=== PATIENT | male | born 1940 | race Caucasian/White ===

== ENCOUNTER 2019-04-29 14:02 | Inpatient (IN) ==
[2019-04-29] MEDS ORDERED: Ibuprofen 400 MG TABLET PO PRN (15:29)
[2019-04-29] MEDS ORDERED: Ondansetron 4 MG/2 ML VIAL IVP PRN (15:29)
[2019-04-29] MEDS ORDERED: MOM Conc 10 ML UD.LIQ PO PRN (15:29)
[2019-04-29] MEDS ORDERED: Mag Hydrox/Al Hydrox/Simeth 30 ML UDC PO PRN (15:29)
[2019-04-29] MEDS ORDERED: Naloxone 0.4 MG/ML INJ IVP PRN (15:29)
[2019-04-29] MEDS ORDERED: Acetaminophen 325 MG TABLET PO PRN (17:39)
[2019-04-29 18:17] LABS: Heparin anti-factor XA UFH 0.51 IU/mL (0.30-0.70)
[2019-04-29 18:18] LABS: INR 1.1; Prothrombin Time 12.2 Seconds (9.4-12.1)
[2019-04-29] MEDS: Nitroglycerin 1 INCH/GM PACKET TP SCH (18:44)
[2019-04-29] MEDS ORDERED: *HR* Heparin 5,000 UNIT/ML VIAL IVP ONE (23:00)
[2019-04-29] MEDS ORDERED: *HR* Heparin 5,000 UNIT/ML VIAL IVP PRN (23:00)
[2019-04-29] MEDS: Heparin 25,000 UNIT/250 ML D5W 25,000 UNIT/250 ML IV.SOLN IVC SCH (23:09)
[2019-04-30 01:26] LABS: Hematocrit 41.2 % (37.5-50.1); Hemoglobin 13.4 g/dL (12.9-16.9); Mean Corpuscular HGB Conc 32.5 g/dL (31.6-35.5); Mean Corpuscular Hemoglobin 29.8 pg (28.0-33.3); Mean Corpuscular Volume 91.8 fL (83.0-100.0); Mean Platelet Volume 10.5 fL (9.4-12.4); Platelet Count 223 K/mcL (140-400); Red Blood Count 4.49 M/mcL (4.19-5.50); Red Cell Distribution Width 12.3 % (11.5-14.5); White Blood Count 9.8 K/mcL (4.3-11.1)
[2019-04-30 01:44] LABS: BUN/Creatinine Ratio 13 (6-26); Blood Urea Nitrogen 16 mg/dL (8-23); Calcium 9.6 mg/dL (8.6-10.3); Carbon Dioxide 27 mEq/L (23-29); Chloride 98 mEq/L (98-107); Glucose 239 mg/dL (70-105); Magnesium 1.6 mg/dL (1.6-2.6); Osmolality,Calculated 287 (280-300); Potassium 3.9 mEq/L (3.5-5.1); Sodium 134 mEq/L (136-145); eGFR For African Americans > 60 (> 60); eGFR For Non-African Americans 59 (> 60)
[2019-04-30] MEDS: Nitroglycerin 1 INCH/GM PACKET TP SCH (05:44)
[2019-04-30] MEDS: Aspirin Enteric Coated 81 MG Tablet PO SCH (07:58)
[2019-04-30] MEDS: Nitroglycerin 25 MG/250 ML INFUS..BTL IVC SCH (11:01)
[2019-04-30] MEDS: Heparin 25,000 UNIT/250 ML D5W 25,000 UNIT/250 ML IV.SOLN IVC SCH (20:22)
[2019-05-01] MEDS: *HR* Heparin 5,000 UNIT/ML VIAL IVP PRN (00:45)
[2019-05-01 02:35] LABS: Basophils # 0.1 K/mcL (0.0-0.2); Basophils % 0.6 %; Eosinophils # 0.5 K/mcL (0.0-0.6); Eosinophils % 4.8 %; Hemoglobin 13.8 g/dL (12.9-16.9); Immature Granulocytes % 0.3 % (0-4); Lymphocytes # 2.2 K/mcL (0.6-4.6); Lymphocytes % 23.1 %; Mean Corpuscular HGB Conc 32.9 g/dL (31.6-35.5); Mean Corpuscular Hemoglobin 29.7 pg (28.0-33.3); Mean Corpuscular Volume 90.3 fL (83.0-100.0); Mean Platelet Volume 9.9 fL (9.4-12.4); Monocytes % 10.1 %; Neutrophils # 5.8 K/mcL (1.6-8.9); Platelet Count 224 K/mcL (140-400); Red Blood Count 4.65 M/mcL (4.19-5.50); Red Cell Distribution Width 12.2 % (11.5-14.5); Segmented Neutrophils % 61.1 %; White Blood Count 9.6 K/mcL (4.3-11.1)
[2019-05-01 02:38] LABS: Estimated Average Glucose 157 mg/dl
[2019-05-01 02:54] LABS: BUN/Creatinine Ratio 11 (6-26); Blood Urea Nitrogen 13 mg/dL (8-23); Calcium 9.5 mg/dL (8.6-10.3); Carbon Dioxide 28 mEq/L (23-29); Chloride 98 mEq/L (98-107); Chol/HDL Ratio 6.8 (0-4.9); Cholesterol 257 mg/dL (< 200); Glucose 143 mg/dL (70-105); HDL Cholesterol 38 mg/dL (40-59); LDL Cholesterol,Calculated 178 mg/dL (0-99); Osmolality,Calculated 281 (280-300); Potassium 3.9 mEq/L (3.5-5.1); Sodium 134 mEq/L (136-145); Triglycerides 206 mg/dL (< 150); eGFR For African Americans > 60 (> 60); eGFR For Non-African Americans > 60 (> 60)
[2019-05-01] MEDS ORDERED: Heparin 1,000 UNITS/500 mL 500 ML ONE (07:06)
[2019-05-01] MEDS ORDERED: Nitroglycerin 1,000 MCG/10 ML VIAL IV ONE (07:06)
[2019-05-01] MEDS ORDERED: 0.9 % Sodium Chloride 1,000 ML ONE (07:06)
[2019-05-01] MEDS ORDERED: *HR* Heparin 10,000 UNIT/10 ML VIAL ONE (07:06)
[2019-05-01] MEDS ORDERED: Iopamidol 125 ML INFUS..BTL ONE (07:07)
[2019-05-01] MEDS ORDERED: *HR* FentaNYL (PF) 100 MCG/2 ML VIAL ONE (07:19)
[2019-05-01] MEDS ORDERED: *HR* Midazolam HCl 2 MG/2 ML VIAL ONE (07:19)
[2019-05-01] MEDS ORDERED: Isovue-300 200 mL Infus..BTL ONE (08:09)
[2019-05-01] MEDS ORDERED: Tirofiban 12.5 MG/250ML 12.5 MG/250 ML BAG ONE (08:09)
[2019-05-01] MEDS: Aspirin Enteric Coated 81 MG Tablet PO SCH (08:57)
[2019-05-01] MEDS: 0.9 % Sodium Chloride 1,000 ML IVC SCH (09:00)
[2019-05-01] MEDS: Heparin 25,000 UNIT/250 ML D5W 25,000 UNIT/250 ML IV.SOLN IVC SCH (09:28)
[2019-05-01] MEDS: Nitroglycerin 25 MG/250 ML INFUS..BTL IVC SCH (09:39)
[2019-05-01] MEDS ORDERED: Perflutren Lipid Microsphere 1.3 ML in 0.9 % Sodium Chloride 8.7 ML IVP ONE (13:29)
[2019-05-02] MEDS: 0.9 % Sodium Chloride 1,000 ML IVC SCH (00:44)
[2019-05-02 01:02] LABS: Basophils # 0.1 K/mcL (0.0-0.2); Basophils % 0.7 %; Eosinophils # 0.4 K/mcL (0.0-0.6); Eosinophils % 4.8 %; Hematocrit 41.2 % (37.5-50.1); Hemoglobin 13.7 g/dL (12.9-16.9); Immature Granulocytes % 0.2 % (0-4); Lymphocytes # 2.2 K/mcL (0.6-4.6); Mean Corpuscular HGB Conc 33.3 g/dL (31.6-35.5); Mean Corpuscular Hemoglobin 30.2 pg (28.0-33.3); Mean Corpuscular Volume 90.7 fL (83.0-100.0); Mean Platelet Volume 9.8 fL (9.4-12.4); Monocytes # 0.9 K/mcL (0.0-1.3); Monocytes % 10.2 %; Neutrophils # 5.4 K/mcL (1.6-8.9); Platelet Count 205 K/mcL (140-400); Red Blood Count 4.54 M/mcL (4.19-5.50); Red Cell Distribution Width 12.2 % (11.5-14.5); Segmented Neutrophils % 60.1 %
[2019-05-02 01:12] LABS: Prothrombin Time 11.7 Seconds (9.4-12.1)
[2019-05-02 01:27] LABS: BUN/Creatinine Ratio 14 (6-26); Blood Urea Nitrogen 15 mg/dL (8-23); Calcium 9.2 mg/dL (8.6-10.3); Carbon Dioxide 27 mEq/L (23-29); Chloride 100 mEq/L (98-107); Glucose 133 mg/dL (70-105); Osmolality,Calculated 283 (280-300); Potassium 3.9 mEq/L (3.5-5.1); Sodium 135 mEq/L (136-145); eGFR For African Americans > 60 (> 60); eGFR For Non-African Americans > 60 (> 60)
[2019-05-02] MEDS: *HR* Heparin 5,000 UNIT/ML VIAL IVP PRN (02:53)
[2019-05-02] MEDS: Heparin 25,000 UNIT/250 ML D5W 25,000 UNIT/250 ML IV.SOLN IVC SCH (06:54)
[2019-05-02] MEDS: Aspirin Enteric Coated 81 MG Tablet PO SCH (08:13)
[2019-05-02] MEDS ORDERED: *HR* Heparin 10,000 UNIT/10 ML VIAL ONE (14:28)
[2019-05-02] MEDS ORDERED: Iopamidol 125 ML INFUS..BTL ONE (14:28)
[2019-05-02] MEDS ORDERED: Heparin 1,000 UNITS/500 mL 500 ML ONE (14:28)
[2019-05-02] MEDS ORDERED: 0.9 % Sodium Chloride 1,000 ML ONE (14:28)
[2019-05-02] MEDS ORDERED: *HR* FentaNYL (PF) 100 MCG/2 ML VIAL ONE (16:25)
[2019-05-02] MEDS ORDERED: *HR* Midazolam HCl 2 MG/2 ML VIAL ONE (16:25)
[2019-05-02] MEDS ORDERED: Nitroglycerin 1,000 MCG/10 ML VIAL IV ONE (16:29)
[2019-05-02] MEDS ORDERED: Verapamil 5 MG/2 ML VIAL ONE (16:31)
[2019-05-02] MEDS ORDERED: *HR* Ticagrelor 90 MG TABLET ONE (16:59)
[2019-05-02] MEDS: Ranolazine 500 MG TAB.ER.12H PO SCH (21:17)
[2019-05-03] MEDS: 0.9 % Sodium Chloride 1,000 ML IVC SCH (01:28)
[2019-05-03 05:22] LABS: Basophils % 0.4 %; Eosinophils # 0.5 K/mcL (0.0-0.6); Eosinophils % 6.8 %; Hematocrit 40.5 % (37.5-50.1); Hemoglobin 13.2 g/dL (12.9-16.9); Immature Granulocytes % 0.3 % (0-4); Lymphocytes # 1.5 K/mcL (0.6-4.6); Lymphocytes % 20.9 %; Mean Corpuscular HGB Conc 32.6 g/dL (31.6-35.5); Mean Corpuscular Hemoglobin 30.3 pg (28.0-33.3); Mean Corpuscular Volume 92.9 fL (83.0-100.0); Mean Platelet Volume 9.8 fL (9.4-12.4); Monocytes # 0.9 K/mcL (0.0-1.3); Monocytes % 12.3 %; Neutrophils # 4.3 K/mcL (1.6-8.9); Platelet Count 189 K/mcL (140-400); Red Blood Count 4.36 M/mcL (4.19-5.50); Red Cell Distribution Width 12.1 % (11.5-14.5); Segmented Neutrophils % 59.3 %; White Blood Count 7.2 K/mcL (4.3-11.1)
[2019-05-03 05:38] LABS: BUN/Creatinine Ratio 11 (6-26); Blood Urea Nitrogen 14 mg/dL (8-23); Carbon Dioxide 27 mEq/L (23-29); Chloride 99 mEq/L (98-107); Glucose 141 mg/dL (70-105); Osmolality,Calculated 283 (280-300); Potassium 4.1 mEq/L (3.5-5.1); Sodium 135 mEq/L (136-145); eGFR For African Americans > 60 (> 60); eGFR For Non-African Americans 55 (> 60)
[2019-05-03 07:29] VITALS: BP 114/76
[2019-05-03] MEDS: Aspirin Enteric Coated 81 MG Tablet PO SCH (08:05)
[2019-05-03] MEDS: Ranolazine 500 MG TAB.ER.12H PO SCH (08:06)
[2019-05-03] MEDS ORDERED: Isosorbide MONOnitrate (24 HR) 30 MG TAB.ER.24H PO SCH (09:00)
== END 2019-05-03 17:13 | disposition home or self-care (01) | DRG 247 ==
LOC: 2NENU → SUATTDRO 15:15
PROVIDERS: ADMIT Internal Medicine; ATTEND Internal Medicine

== ENCOUNTER 2020-08-10 13:56 | Observation (INO) ==
[2020-08-10] MEDS ORDERED: Naloxone 0.4 MG/ML INJ IVP PRN (17:40)
[2020-08-10] MEDS ORDERED: Ipratropium/Albuterol Neb 3 ML IH PRN (17:44)
[2020-08-10] MEDS ORDERED: 0.9 % Sodium Chloride 1,000 ML IVC SCH (18:00)
[2020-08-10] MEDS ORDERED: Acetaminophen 325 MG TABLET PO PRN (21:09)
[2020-08-10] MEDS ORDERED: *HR* OxyCODONE Immed Rel 5 MG TABLET PO PRN (21:09)
[2020-08-10] MEDS: *HR* Heparin 5,000 UNIT/ML VIAL SQ SCH (21:17)
[2020-08-10] MEDS: Piperacillin/Tazobactam 3.375 GM in 0.9 % Sodium Chloride Mini Bag 100 ML IVPB SCH (23:24)
[2020-08-11] MEDS: *HR* Heparin 5,000 UNIT/ML VIAL SQ SCH ×3 (04:45→20:49)
[2020-08-11 04:59] LABS: Basophils % 0.3 %; Eosinophils # 0.2 K/mcL (0.0-0.6); Eosinophils % 2.1 %; Hematocrit 35.4 % (37.5-50.1); Hemoglobin 11.3 g/dL (12.9-16.9); Immature Granulocytes % 0.6 % (0-4); Lymphocytes # 1.3 K/mcL (0.6-4.6); Mean Corpuscular HGB Conc 31.9 g/dL (31.6-35.5); Mean Corpuscular Hemoglobin 29.8 pg (28.0-33.3); Mean Corpuscular Volume 93.4 fL (83.0-100.0); Mean Platelet Volume 9.9 fL (9.4-12.4); Monocytes # 1.2 K/mcL (0.0-1.3); Monocytes % 10.2 %; Neutrophils # 8.6 K/mcL (1.6-8.9); Platelet Count 185 K/mcL (140-400); Red Blood Count 3.79 M/mcL (4.19-5.50); Red Cell Distribution Width 13.1 % (11.5-14.5); Segmented Neutrophils % 75.8 %; White Blood Count 11.3 K/mcL (4.3-11.1)
[2020-08-11 05:30] LABS: Potassium 3.6 mEq/L (3.5-5.1)
[2020-08-11] MEDS ORDERED: Metoprolol XL (24 HR) Succ 25 MG TAB.ER.24H PO SCH (06:30)
[2020-08-11] MEDS ORDERED: *HR* HYDROmorphone PF 0.5 MG/0.5 ML SYRINGE IVP PRN (07:14)
[2020-08-11] MEDS ORDERED: *HR* FentaNYL (PF) 100 MCG/2 ML VIAL IVP PRN (07:14)
[2020-08-11] MEDS: Piperacillin/Tazobactam 3.375 GM in 0.9 % Sodium Chloride Mini Bag 100 ML IVPB SCH ×2 (07:25→15:23)
[2020-08-11] MEDS ORDERED: Ranolazine 500 MG TAB.ER.12H PO SCH (09:00)
[2020-08-11] MEDS ORDERED: *HR* Propofol 200 MG/20 ML VIAL IVP ONE (09:36)
[2020-08-11] MEDS ORDERED: *HR* Rocuronium Bromide 50 MG/5 ML VIAL ONE (09:36)
[2020-08-11] MEDS ORDERED: Dexamethasone 4 MG/ML VIAL ONE (09:36)
[2020-08-11] MEDS ORDERED: *HR* FentaNYL (PF) 100 MCG/2 ML VIAL ONE ×2 (09:36→11:27)
[2020-08-11] MEDS ORDERED: Lidocaine -MPF 2% 2 ML VIAL ONE (09:36)
[2020-08-11] MEDS ORDERED: *HR* Succinylcholine 200 MG/10 ML VIAL IVP ONE (09:36)
[2020-08-11] MEDS ORDERED: Lidocaine HCL 4 ML Topical Solution (Laryng-O-Jet Kit Sterile Pak) TP ONE (09:36)
[2020-08-11] MEDS ORDERED: Ondansetron 4 MG/2 ML VIAL ONE (09:36)
[2020-08-11] MEDS ORDERED: *HR* PHENYLEPHRINE 1,000 MCG/10 ML SYRINGE IVP ONE ×2 (10:17→11:45)
[2020-08-11] MEDS ORDERED: Ipratropium/Albuterol Neb 3 ML IH PRN (12:42)
[2020-08-11] MEDS ORDERED: Naloxone 0.4 MG/ML INJ IVP PRN (12:42)
[2020-08-11] MEDS ORDERED: *HR* OxyCODONE/APAP 5/325 TABLET PO PRN ×2 (12:42)
[2020-08-11] MEDS: Ranolazine 500 MG TAB.ER.12H PO SCH (20:39)
[2020-08-12] MEDS: Piperacillin/Tazobactam 3.375 GM in 0.9 % Sodium Chloride Mini Bag 100 ML IVPB SCH ×2 (00:05→07:16)
[2020-08-12 04:28] LABS: Basophils % 0.2 %; Hematocrit 30.7 % (37.5-50.1); Hemoglobin 9.9 g/dL (12.9-16.9); Immature Granulocytes % 0.6 % (0-4); Lymphocytes # 0.8 K/mcL (0.6-4.6); Lymphocytes % 6.6 %; Mean Corpuscular HGB Conc 32.2 g/dL (31.6-35.5); Mean Corpuscular Hemoglobin 30.4 pg (28.0-33.3); Mean Corpuscular Volume 94.2 fL (83.0-100.0); Mean Platelet Volume 9.9 fL (9.4-12.4); Monocytes # 0.9 K/mcL (0.0-1.3); Monocytes % 7.6 %; Neutrophils # 10.5 K/mcL (1.6-8.9); Platelet Count 181 K/mcL (140-400); Red Blood Count 3.26 M/mcL (4.19-5.50); Red Cell Distribution Width 12.8 % (11.5-14.5); White Blood Count 12.4 K/mcL (4.3-11.1)
[2020-08-12] MEDS: *HR* Heparin 5,000 UNIT/ML VIAL SQ SCH (05:27)
[2020-08-12 07:16] VITALS: BP 117/65
[2020-08-12] MEDS: Ranolazine 500 MG TAB.ER.12H PO SCH (07:16)
[2020-08-12 08:29] LABS: Calcium 7.9 mg/dL (8.6-10.3)
[2020-08-12] MEDS ORDERED: Metoprolol XL (24 HR) Succ 25 MG TAB.ER.24H PO SCH (09:00)
== END 2020-08-12 11:15 | disposition home or self-care (01) ==
LOC: 3ANU
PROVIDERS: ADMIT Internal Medicine; ATTEND Internal Medicine